=== PATIENT | male | born 1975 | race Caucasian/White ===

== ENCOUNTER 2020-01-03 02:14 | Emergency (ER) | payer SELFPAY ==
[2020-01-03 02:15] VITALS: BP 142/100; PULSE 103; RESP 16; TEMP 35.7; O2SAT 99; BMI 16.2
[2020-01-03 03:09] LABS: Absolute Lymphocyte Count 1.06 X10^3/uL (0.83-4.51); Absolute Neutrophil Count 6.5 X10^3/uL (2.0-7.7); Basophil# 0.03 X10^3/uL; Basophil% 0.4 % (0-1); Eosinophil# 0.05 X10^3/uL; Eosinophils% 0.6 % (0-5); Hematocrit 43.5 % (40-54); Hemoglobin 14.7 g/dL (13.0-16.5); Lymphocyte # 1.06 X10^3/ul (4.0); Lymphocyte % 12.8 % (19-41); Mean Corp Hgb Conc 33.8 g/dL (32-36); Mean Corpuscular Hgb 31.9 pg (27.0-32.0); Mean Corpuscular Volume 94.4 fL (80-94); Mean Platelet Vol. 9.4 fl (6.2-12.0); Monocyte% 7.2 % (0-10); NRBC Flagged by Analyzer 0 % (0-5); Neutrophil # 6.52 X10^3/uL (2.7-7.7); Neutrophil % 78.6 % (47-70); Platelet Count 278 K/mm3 (150-450); RBC Distribution Width CV 11.9 % (11.6-14.6); RBC Distribution Width SD 40.8 fl (35.1-43.9); Red Blood Count 4.61 M/mm3 (4.6-6.2); White Blood Count 8.3 K/mm3 (4.4-11.0)
--- NOTE | 2020-01-03 03:09 | ED.RN ---
Addendum entered by Clair Cam 01/03/20 03:13: Dr. Aguilar wants labs, call Crisis for evaluation. MD kumar pt evaluated for outpatient therapy. Original Note: Dr. Aguilar orders no sitter.
--- NOTE | 2020-01-03 03:12 | ED.DCSUM_ITS ---
- ER Visit Summary Date of Service: 01/03/20 Chief Complaint: Suicidal ideation History of Present Illness: The patient is a 44 M who presents with a suicidal ideation that occurred today. Patient states he got into an argument with his family and pulled out a gun. Patient states he told his family he threatened to shoot himself. Patient states that this was in the heat of the moment. Currently, patient denies any suicidal ideation. Patient states he wants to be around for his kids. Patient states he also started a new job today. Physical Examination: Vital signs are stable. Patient is afebrile. Patient is in no acute distress. Oral mucosa is pink and moist. Neck is supple. Trachea is midline. There is no JVD noted. Heart was regular rate and rhythm. Lungs are clear and equal bilaterally. Abdomen is soft. Bowel sounds are normal. There is no tenderness. There is no rebound or guarding noted. Skin is warm dry. Cranial nerves II through XII are intact. There are no focal motor or sensory deficits noted. Extremities are intact. There is no calf tenderness or edema. She has a pleasant mood and normal affect. Patient currently denies any suicidal or homicidal ideations. Test Results: CBC and basic metabolic profile within normal limits. Urine tox screen and serum alcohol level was normal. Emergency Department Course and Treatment: Patient is resting comfortably on reevaluation. Patient is medically cleared for crisis evaluation. Crisis will evaluate the patient over the phone. Disposition: Pending per crisis evaluation Impression: Depression This note was generated with [employer] dictation software. It may contain incorrect words, spelling, and punctuation that were not noted in review of the chart prior to signing ED Disposition - Plan for ED Patient: Diagnosis: Depression Instructions: CONTRACT, No Harm, ED Depression Referrals: Counseling,Center [GROUP OF PHYSICIANS] - As soon as possible
[2020-01-03 03:14] LABS: Amphetamine Urine VISTA NEGATIVE (<1000 ng/mL); Barbiturate Urine VISTA NEGATIVE (< 200 ng/mL); Benzodiazepine Urine VISTA NEGATIVE (< 200 ng/mL); Cocaine Urine VISTA NEGATIVE (< 300 ng/mL); Ecstacy Urine VISTA NEGATIVE (< 500 ng/mL); Methadone Urine VISTA NEGATIVE (< 300 ng/mL); PCP Urine VISTA NEGATIVE (< 25 ng/mL); THC Urine VISTA NEGATIVE (< 50 ng/mL); Vista UDS pH Range 5
[2020-01-03 03:22] LABS: Anion Gap 4 (5-15); BUN 6 mg/dL (7-18); BUN/Creat Ratio 5.2 RATIO (10-20); Chloride 103 mmol/L (98-107); Creatinine, Serum 1.15 mg/dL (0.70-1.30); EST Glomerular Filtration Rate 74 mL/min (>60); Est Glom Filt Rate - Afr Amer 90 mL/min (>60); Estimated Creatinine Clearance 64.42 ml/min; Glucose 186 mg/dL (74-106); Potassium 3.6 mmol/L (3.5-5.1); Sodium Level 137 mmol/L (136-145)
[2020-01-03 03:44] LABS: Alcohol, Blood (Medical)-Serum < 3.0 mg/dL
--- NOTE | 2020-01-03 03:47 | ED.RN ---
CALLED TO [facility].
[2020-01-03 06:50] VITALS: BP 106/75; PULSE 66; RESP 15; O2SAT 97
--- NOTE | 2020-01-03 07:34 | ED.RN ---
gina from crises called to talk with physician. has talked with pt
--- NOTE | 2020-01-03 07:38 | ED.DCSUM_ITS ---
- ER Visit Summary Date of Service: 01/03/20 Patient was checked out to me with consultation by the counseling center pending. Emergency Department Course and Treatment: Patient was discussed with the counseling center. He can contract for safety. He does not meet criteria for inpatient admission. He reports that this was an impulsive one-time thing and he has no intention of harming himself. Treatment Plan: Patient will be discharged instructions to follow-up the counseling center soon as possible. Return to the emergency department for any worsening symptoms. Disposition: To home in improved and stable condition. Impression: 1. Depression. This note was generated with [employer] dictation software. It may contain incorrect words, spelling, and punctuation that were not noted in review of the chart prior to signing ED Disposition - Plan for ED Patient: Diagnosis: Depression Instructions: CONTRACT, No Harm, ED Depression Referrals: Counseling,Center [GROUP OF PHYSICIANS] - As soon as possible
== END 2020-01-03 08:31 | disposition home or self-care (01) ==
PROVIDERS: Emergency Provider Emergency Medicine
DX: F32.9 Major depressive disorder, single episode, unspecified (principal); F17.290 Nicotine dependence, other tobacco product, uncomplicated
CPT/HCPCS: 36415; 80048; 80307; 80320; 85025; 99283; G0480